=== PATIENT | male | born 1995 | race Caucasian/White ===

== ENCOUNTER 2017-06-02 10:16 | Emergency (ER) | payer MEDICAID, OTHER ==
[~2017-06-02] VITALS: Ht 160 cm; Wt 104.8 kg
[2017-06-02 10:45] LABS: HEMATOCRIT 46.5 % (39.2-51.8); HEMOGLOBIN 15.3 g/dL (13.7-18.0); WHITE BLOOD COUNT 10.6 x10^3/uL (3.4-10)
[2017-06-02] MEDS ORDERED: DEXAMETHASONE 4 MG TABLET ONE (10:46)
[2017-06-02 10:57] LABS: BLOOD UREA NITROGEN 9 mg/dL (7-18)
[2017-06-02] MEDS ORDERED: DEXAMETHASONE 4 MG/ML, 1ML PO ONE (11:00)
[2017-06-02] MEDS ORDERED: DEXAMETHASONE 4 MG TABLET PO ONE (11:00)
[2017-06-02] MEDS ORDERED: SODIUM CHLORIDE 0.9% 1,000 ML IV ONE (11:14)
[2017-06-02 12:17] VITALS: BP 127/81
== END 2017-06-02 12:19 | disposition home or self-care (01) ==
LOC: ED 10:51
DX: L04.0 Acute lymphadenitis of face, head and neck (principal); R42 Dizziness and giddiness; F17.210 Nicotine dependence, cigarettes, uncomplicated; Z88.2 Allergy status to sulfonamides
CPT/HCPCS: 36415; 80048; 82040; 85025; 93005; 96360; 99285; J7030

== ENCOUNTER 2017-06-16 01:35 | Emergency (ER) | payer MEDICAID ==
[~2017-06-16] VITALS: Ht 152.4 cm; Wt 99.1 kg
[2017-06-16 01:37] VITALS: BP 121/85
== END 2017-06-16 02:03 | disposition home or self-care (01) ==
LOC: ED 01:57
DX: M79.604 Pain in right leg (principal); M79.605 Pain in left leg; R20.2 Paresthesia of skin
CPT/HCPCS: 99281

== ENCOUNTER 2017-06-22 21:53 | Emergency (ER) | payer MEDICAID ==
[~2017-06-22] VITALS: Ht 160 cm; Wt 90.9 kg
[2017-06-22 21:56] VITALS: BP 140/89
== END 2017-06-22 22:48 | disposition home or self-care (01) ==
LOC: ED 22:35
DX: M79.671 Pain in right foot (principal); M79.672 Pain in left foot; F15.10 Other stimulant abuse, uncomplicated; L55.0 Sunburn of first degree; F17.200 Nicotine dependence, unspecified, uncomplicated; Z88.2 Allergy status to sulfonamides
CPT/HCPCS: 99283

== ENCOUNTER 2017-06-25 00:27 | Emergency (ER) | payer MEDICAID ==
[~2017-06-25] VITALS: Ht 160 cm; Wt 97.0 kg
[2017-06-25 00:32] VITALS: BP 132/78
[2017-06-25 03:02] LABS: HEMATOCRIT 46.1 % (39.2-51.8); HEMOGLOBIN 15.5 g/dL (13.7-18.0); WHITE BLOOD COUNT 9.5 x10^3/uL (3.4-10)
[2017-06-25 03:07] LABS: ASPARTATE AMINO TRANSFERASE 28 U/L (15-37); BLOOD UREA NITROGEN 13 mg/dL (7-18)
[2017-06-25 03:10] LABS: ACETAMINOPHEN < 2 mcg/mL (10-30)
[2017-06-25 04:13] LABS: DAU SCREEN DISCLAIMER
== END 2017-06-25 06:36 | disposition home or self-care (01) ==
LOC: ED 00:39
DX: F32.9 Major depressive disorder, single episode, unspecified (principal); F15.20 Other stimulant dependence, uncomplicated; Z72.9 Problem related to lifestyle, unspecified; Z88.1 Allergy status to other antibiotic agents; F17.200 Nicotine dependence, unspecified, uncomplicated
CPT/HCPCS: 36415; 80053; 80307; 80329; 85025; 99284; G0479; G0480